=== PATIENT | male | born 1985 | race American Indian/Alaskan Native ===

== ENCOUNTER 2019-06-18 18:17 | Emergency (ER) | payer OTHER ==
[2019-06-18 19:41] VITALS: BP 152/87
--- NOTE | 2019-06-18 21:29 | Event Note ---
ED Screening Note ED Screening Note: denies HI/SI +hallucinations visual and auditory "states he has an appointment to have surgery today at this hospital, states they know him by name, states he needs tonsil surgery back surgery" pt has disorganized speech and delusions states he has been to psychiatric facility before 5-10 years ago PMHx bipolar, schizophrenia no allergies to meds +tobacco non drinker no drug use This initial assessment/diagnostic orders/clinical plan/treatment(s) is/are subject to change based on patients health status, clinical progression and re- assessment by fellow clinical providers in the ED. Further treatment and workup at subsequent clinical providers discretion. Patient/guardian urged not to elope from the ED as their condition may be serious if not clinically assessed and managed. Initial orders include: mental health eval
[2019-06-18 22:20] LABS: Hematocrit 42.9 % (35.5-45.6); Hemoglobin 14.2 gm/dl (11.8-15.2); Mean Corpuscular HGB Conc 33 % (32-34); Mean Corpuscular Volume 90 fl (84-94); Platelet Count 321 K/mm3 (140-440); Red Cell Distribution Width 13.6 % (13.2-15.2)
[2019-06-18 22:26] LABS: Alanine Aminotransferase 12 units/L (7-56); Albumin 4.4 g/dL (3.9-5); BUN/Creatinine Ratio 8; Blood Urea Nitrogen 7 mg/dL (9-20); Hemolysis Index 9
== END 2019-06-19 01:35 | disposition left against medical advice (07) ==
LOC: ED 18:17
DX: R44.0 Auditory hallucinations (principal); R44.1 Visual hallucinations; Z53.21 Procedure and treatment not carried out due to patient leaving prior to being seen by health care provider
CPT/HCPCS: 36415; 80053; 80320; 82550; 85025; G0480

== ENCOUNTER 2019-06-19 12:38 | Emergency (ER) | payer SELFPAY ==
[2019-06-19 13:44] LABS: Basophils % (Auto) 0.5 % (0.0-1.8); Eosinophils % (Auto) 0.1 % (0.0-4.3); Hematocrit 42.6 % (35.5-45.6); Hemoglobin 14.1 gm/dl (11.8-15.2); Lymphocytes # (Auto) 1.7 K/mm3 (1.2-5.4); Lymphocytes % (Auto) 27.3 % (13.4-35.0); Mean Corpuscular HGB Conc 33 % (32-34); Mean Corpuscular Volume 90 fl (84-94); Monocytes # (Auto) 0.9 K/mm3 (0.0-0.8); Monocytes % (Auto) 13.8 % (0.0-7.3); Platelet Count 344 K/mm3 (140-440); Red Blood Count 4.74 M/mm3 (3.65-5.03); Red Cell Distribution Width 13.9 % (13.2-15.2)
[2019-06-19 13:58] LABS: BUN/Creatinine Ratio 11; Blood Urea Nitrogen 10 mg/dL (9-20); Calcium 9.3 mg/dL (8.4-10.2); Hemolysis Index 3
--- NOTE | 2019-06-19 14:02 | Emergency Department Report ---
ED Psych HPI - General Chief Complaint: Psych Stated Complaint: TONSILS PAIN Time Seen by Provider: 06/19/19 13:58 Source: patient Mode of arrival: Ambulatory - History of Present Illness Initial Comments: 33-year-old male with history of bipolar disorder and schizophrenia presents to ED with auditory and visual hallucinations. Patient states that he is currently off of his psychiatric medications. Patient denies SI, HI, drug or alcohol use. -: unknown Associated Psychiatric Symptoms: auditory hallucinations, visual hallucinations Improves With: none Worsens With: none Context: not taking psychiatric Treatments Prior to Arrival: none - Related Data Previous Rx's Medication Instructions Recorded Last Taken Type Benztropine [Cogentin] 0.5 mg PO DAILY #30 tab 06/23/19 Unknown Rx Divalproex ER [Depakote ER] 250 mg PO TID #90 tablet 06/23/19 Unknown Rx risperiDONE [RisperDAL] 1 mg PO BID #60 tab 06/23/19 Unknown Rx traZODone [Desyrel] 50 mg PO QHS #30 tab 06/23/19 Unknown Rx Allergies Allergy/AdvReac Type Severity Reaction Status Date / Time No Known Allergies Allergy Verified 06/20/19 12:25 ED Review of Systems ROS: Stated complaint: TONSILS PAIN Other details as noted in HPI Comment: All other systems reviewed and negative ENT: dental pain Psychiatric: auditory hallucinations, visual hallucinations. denies: homicidal thoughts, suicidal thoughts ED Past Medical Hx - Past Medical History Previous Medical History?: Yes Hx Hypertension: Yes Hx Psychiatric Treatment: Yes (schizophrenia, bipolar) - Surgical History Past Surgical History?: No - Social History Smoking Status: Current Every Day Smoker - Medications Home Medications: Home Medications Medication Instructions Recorded Confirmed Last Taken Type Benztropine [Cogentin] 0.5 mg PO DAILY #30 tab 06/23/19 Unknown Rx Divalproex ER [Depakote ER] 250 mg PO TID #90 tablet 06/23/19 Unknown Rx risperiDONE [RisperDAL] 1 mg PO BID #60 tab 06/23/19 Unknown Rx traZODone [Desyrel] 50 mg PO QHS #30 tab 06/23/19 Unknown Rx ED Physical Exam - General Limitations: No Limitations General appearance: alert, in no apparent distress - Head Head exam: Present: atraumatic, normocephalic - Eye Eye exam: Present: normal appearance, EOMI - ENT ENT exam: Present: mucous membranes moist - Respiratory Respiratory exam: Present: normal lung sounds bilaterally. Absent: respiratory distress - Cardiovascular Cardiovascular Exam: Present: normal rhythm, tachycardia - GI/Abdominal GI/Abdominal exam: Absent: distended - Extremities Exam Extremities exam: Present: normal inspection, full ROM - Neurological Exam Neurological exam: Present: alert, oriented X3 - Psychiatric Psychiatric exam: Present: normal affect, normal mood, other (speech is disorganized) - Skin Skin exam: Present: warm, dry, intact, normal color ED Course Vital Signs 06/19/19 06/19/19 06/19/19 12:42 16:42 19:42 Temperature 98.5 F 99.4 F Pulse Rate 126 H 106 H Respiratory 16 18 Rate Blood Pressure 131/79 Blood Pressure 125/82 [Left] O2 Sat by Pulse 96 98 100 Oximetry 06/19/19 06/19/19 06/20/19 20:03 20:12 02:03 Temperature 98.5 F 98.5 F 97.5 F L Pulse Rate 109 H 85 77 Respiratory 18 16 16 Rate Blood Pressure Blood Pressure 129/76 128/86 122/90 [Left] O2 Sat by Pulse 96 97 97 Oximetry 06/20/19 06/20/19 06/20/19 08:35 19:10 20:00 Temperature 98.1 F 97.2 F L Pulse Rate 93 H 85 Respiratory 18 18 Rate Blood Pressure Blood Pressure 117/73 135/90 [Left] O2 Sat by Pulse 96 97 100 Oximetry 06/21/19 06/21/19 06/21/19 02:10 09:51 20:00 Temperature 97.8 F 98.2 F 98.4 F Pulse Rate 84 94 H 109 H Respiratory 18 18 Rate Blood Pressure Blood Pressure 128/74 112/76 126/80 [Left] O2 Sat by Pulse 97 100 99 Oximetry 06/22/19 06/22/19 06/22/19 02:00 07:00 13:00 Temperature 98.7 F 99.0 F 98.7 F Pulse Rate 96 H 69 118 H Respiratory 18 18 18 Rate Blood Pressure Blood Pressure 120/79 128/71 127/79 [Left] O2 Sat by Pulse 98 98 96 Oximetry 06/22/19 06/23/19 06/23/19 20:20 02:15 07:00 Temperature 99.9 F H 99.1 F 99.4 F Pulse Rate 110 H 96 H 123 H Respiratory 18 18 22 Rate Blood Pressure Blood Pressure 121/78 102/61 113/55 [Left] O2 Sat by Pulse 97 97 97 Oximetry 06/23/19 06/23/19 13:00 16:20 Temperature 99.1 F Pulse Rate 111 H 104 H Respiratory 20 18 Rate Blood Pressure Blood Pressure 142/72 126/76 [Left] O2 Sat by Pulse 97 98 Oximetry ED Medical Decision Making - Lab Data Result diagrams: 06/19/19 12:47 06/19/19 12:47 - Medical Decision Making 33-year-old male with history of bipolar and schizophrenia presents to ED with acute psychosis, reporting audio and visual hallucinations. Speech is disorganized, patient is delusional. Labs are unremarkable. Patient has been placed on 1013. He is medically clear for mental health evaluation. - Differential Diagnosis psychosis Critical care attestation.: If time is entered above; I have spent that time in minutes in the direct care of this critically ill patient, excluding procedure time. ED Disposition Clinical Impression: Schizoaffective disorder, Psychosis Disposition: DC-01 TO HOME OR SELFCARE Is pt being admited?: No Condition: Stable Instructions: Schizoaffective Disorder (ED) Prescriptions: traZODone [Desyrel] 50 mg PO QHS #30 tab Benztropine [Cogentin] 0.5 mg PO DAILY #30 tab Divalproex ER [Depakote ER] 250 mg PO TID #90 tablet risperiDONE [RisperDAL] 1 mg PO BID #60 tab [facility] - [facility]-5 Days LILLIAN MADAI KAPLAN MD [Primary Care Provider] - 3-5 Days
[2019-06-19 15:21] LABS: Bilirubin,Urine NEG (Negative); Blood,Urine NEG (Negative); Color,Urine Yellow (Yellow); Mucus,Urine 2+ /HPF; Urobilinogen,Urine < 2.0 mg/dL (<2.0)
[2019-06-19 15:27] LABS: Amphetamine Screen,Urine PRESUMPTIVE NEGATIVE; Benzodiazepines Screen,Urine PRESUMPTIVE NEGATIVE; Cannabinoid Screen,Urine PRESUMPTIVE NEGATIVE; Cocaine Screen,Urine PRESUMPTIVE NEGATIVE; Methadone Screen,Urine PRESUMPTIVE NEGATIVE; Opiate Screen,Urine PRESUMPTIVE NEGATIVE
--- NOTE | 2019-06-20 11:31 | Consultation ---
History of Present Illness - Reason for Consult Consult date: 06/20/19 Reason for consult: Delusional, hallucinations - Chief Complaint Chief complaint: Delusions, paranoia - History of Present Psychiatric Illness Don Smiley is a 33y/o male patient who presented to the ER for delusions and hallucinations. He's a/o x 3. He appears to be quite energetic. The patient is on the phone talking as I'm waiting to interview him. He then goes off to take a shower after he's off the phone. When he returns he's talkative and having fl ight of ideas. He also appears agitated at times when trying to explain himself. He says he "has a problem speaking." The patient says he was brought to the ER because he "had an appointment for his tonsils." He then begins to tell me that he broke his arm in the past, he's "in school and now out," he has stomach pains, and he "needs his tooth pulled." When asked about psychiatric history, Mr. Smiley says "sometimes I'm schizophrenic. Sometimes I'm bipolar. Sometimes it matters. Sometimes it doesn't." He denies SI/HI or hallucinations. He says his mood is "good" but states he "has some crazy dude following him. I think he's a chain saw massacre." The patient says he doesn't sleep. Right before the interview ended, the patient asked if he could be in a room by himself because he is "claustrophobic and I feel like the forte are closing in." PAST PSYCHIATRIC HISTORY: Diagnoses: Schizophrenia, Bipolar Suicide attempts or Self-harm behavior: Denies Prior psychiatric hospitalizations: Denies Substance Abuse history: Smokes daily Previous psychiatric medications tried: Cogentin, respiridone Outpatient treatment: "sometimes" PAST MEDICAL HISTORY: HTN (per chart) Family Psychiatric History None reported or documented SOCIAL HISTORY Marital Status: , says is in [place] Living Arrangements: Grandmother Employment Status: Unemployed Access to guns/weapons: "not really" Education: unknown, the patient could not answer clearly History of Abuse: denies Legal History: states he was incarcerated and "just got out 4 days ago." ROS: Constitutional: Negative for weight loss ENT: Negative for stridor Respiratory: Negative for cough or hemoptysis All other systems reviewed and are negative MENTAL STATUS General Appearance and Behavior: age appropriate, energetic, agitated at times Cooperation: Guarded Psychomotor Behavior: Restless Mood: Good Affect and affective range: Restricted Thought Process: Disorganized, flight of ideas Thought Content: paranoid Speech: Increased pace Intellectual Functioning Average Suicidal Ideation: Denies SI Homicidal Ideation: Denies HI Impulse Control: Questionable Insight and Judgment: Limited Memory: Limited Attention: Normal Orientation: alert and oriented Assessment: Bipolar, manic episode, severe w/psychotic features Schizophrenia RECOMMENDATIONS MEDICATIONS: -Depakote ER 250mg po TID -Trazodone 50mg po qd -Risperidone 1mg po BID -Seroquel 25mg po QHS -Cogentin 0.5mg p daily -Nicotine patch 21mg po daily -Geodon 10mg po Q4h prn agitation -Melatonin 5mg qhs prn insomnia Continue 1013 Risks, benefits and alternatives of medications discussed with the patient, questions answered and consent obtained from patient. PSYCHOTHERAPY: Supportive psychotherapy provided MEDICAL: Per primary team DELIRIUM PRECAUTIONS: Please re-orient patient frequently, keep lights on during the day, and minimize benzodiazepines and opiates as these medications could worsen patient's confusion. 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 I have reviewed this treatment plan, including potential risks and benefits of medications, with the patient and/or family members and relevant hospital providers. Please contact with any questions and/or concerns. Thank you for this consult. Medications and Allergies Allergies Allergy/AdvReac Type Severity Reaction Status Date / Time No Known Allergies Allergy Unverified 06/18/19 21:32 Mental Status Exam - Vital signs Last Vital Signs Temp 98.1 F 06/20/19 08:35 Pulse 93 H 06/20/19 08:35 Resp 16 06/20/19 02:03 BP 117/73 06/20/19 08:35 Pulse Ox 96 06/20/19 08:35 Results Result Diagrams: 06/19/19 12:47 06/19/19 12:47 Abnormal lab results 06/19/19 06/19/19 06/19/19 Range/Units 12:47 12:47 12:47 [place] % (Auto) (0.0-7.3) % [place] # (0.0-0.8) K/mm3 Carbon Dioxide 20 L D (22-30) mmol/L Salicylates < 0.3 L (2.8-20.0) mg/dL Acetaminophen < 5.0 L (10.0-30.0) ug/mL 06/19/19 Range/Units 12:47 [place] % (Auto) 13.8 H (0.0-7.3) % [place] # 0.9 H (0.0-0.8) K/mm3 Carbon Dioxide (22-30) mmol/L Salicylates (2.8-20.0) mg/dL Acetaminophen (10.0-30.0) ug/mL All other labs normal.
[2019-06-20] MEDS ORDERED: ZIPRASIDONE MESYLATE 20 MG VIAL IM PRN (12:03)
[2019-06-20] MEDS ORDERED: MELATONIN 5 MG TAB PO PRN (12:10)
[2019-06-20] MEDS: NICOTINE 21 MG/24 HR PATCH TD SCH ×2 (14:00→17:05)
[2019-06-20] MEDS: DIVALPROEX ER 250 MG TAB PO SCH ×2 (15:00→22:16)
[2019-06-20] MEDS ORDERED: QUEtiapine 25 MG TAB PO SCH (22:00)
[2019-06-20] MEDS: risperiDONE 0.25 MG TAB PO SCH (22:11)
[2019-06-20] MEDS: traZODone 50 MG TAB PO SCH (22:11)
[2019-06-21] MEDS: DIVALPROEX ER 250 MG TAB PO SCH ×3 (09:00→20:51)
[2019-06-21] MEDS: risperiDONE 0.25 MG TAB PO SCH ×3 (09:55→22:28)
[2019-06-21] MEDS: BENZTROPINE 0.5 MG TAB PO SCH (09:55)
[2019-06-21] MEDS: NICOTINE 21 MG/24 HR PATCH TD SCH (09:55)
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
[2019-06-21] MEDS: traZODone 50 MG TAB PO SCH (22:19)
[2019-06-21] MEDS ORDERED: risperiDONE 1 MG TAB ONE (22:19)
[2019-06-21] MEDS: risperiDONE 1 MG TAB PO SCH (22:20)
[2019-06-22] MEDS: DIVALPROEX ER 250 MG TAB PO SCH ×3 (09:22→20:11)
[2019-06-22] MEDS ORDERED: risperiDONE 1 MG TAB PO SCH (10:00)
[2019-06-22] MEDS: NICOTINE 21 MG/24 HR PATCH TD SCH (10:13)
[2019-06-22] MEDS: BENZTROPINE 0.5 MG TAB PO SCH (10:13)
[2019-06-22] MEDS: risperiDONE 1 MG TAB PO SCH ×2 (10:13→21:46)
--- NOTE | 2019-06-22 11:25 | Progress Note ---
Subjective - Reason for Consult Consult date: 06/22/19 Reason for consult: Manage mental health - Chief Complaint Chief complaint: The medical chart reviewed and patient's progress discussed with nursing staff. The nurse note states the patient denies SI/HI, reports A/V/H of "dragging." Pt is calm and cooperative at this time. No digress noted. In my interview with the patient today, the patient is lying down. Awake. He's speaking in a low tone and says he "really doesn't want to be disturbed." The patient is having disorganized thoughts and is paranoid. He says he's "paying attention to his surroundings because people look at you different." He is experiencing A/V hallucinations and says "the people who come around him, they are imaginary. They are sleep walking." He says they are "dressed in a style and sometimes they don't have clothes." Mr. Smiley says the people are standing around and he thinks "they are probably ." He says they tell him things like "you can't do this with your style." He describes his mood as "good" and denies SI/ HI. He says he "is sleeping better and feels better" since starting the medication. ROS: Constitutional: Negative for weight loss ENT: Negative for stridor Respiratory: Negative for cough or hemoptysis All other systems reviewed and are negative Mental Status Exam Appearance: Laying down Behavior: Disorganzied Mood: "Good" Affect: Congruent with stated mood Thought Process: Disorganized, flight of ideas Speech: Low tone Thought Content Harmfulness Denies SI/HI Hallucinations: A/V hallucinations Delusions: Paranoid Consciousness: Alert Cognition/Memory: Disorganized Insight/Judgment: Limited. Assessment: Bipolar, manic episode, severe w/psychotic features Schizophrenia RECOMMENDATIONS MEDICATIONS: Increased Risperidone 1.5mg po BID Continue 1013 Risks, benefits and alternatives of medications discussed with the patient, questions answered and consent obtained from patient. PSYCHOTHERAPY: Supportive psychotherapy provided MEDICAL: Per primary team DELIRIUM PRECAUTIONS: Please re-orient patient frequently, keep lights on during the day, and minimize benzodiazepines and opiates as these medications could worsen patient's confusion. 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 I have reviewed this treatment plan, including potential risks and benefits of medications, with the patient and/or family members and relevant hospital providers. Mental Status Exam - Vital signs Last Vital Signs Temp 99.0 F 06/22/19 07:00 Pulse 69 06/22/19 07:00 Resp 18 06/22/19 07:00 BP 128/71 06/22/19 07:00 Pulse Ox 98 06/22/19 07:00
[2019-06-22] MEDS: traZODone 50 MG TAB PO SCH (21:46)
[2019-06-23] MEDS: DIVALPROEX ER 250 MG TAB PO SCH ×2 (08:02→13:55)
[2019-06-23] MEDS: BENZTROPINE 0.5 MG TAB PO SCH (09:58)
[2019-06-23] MEDS: risperiDONE 1 MG TAB PO SCH (09:58)
[2019-06-23] MEDS: NICOTINE 21 MG/24 HR PATCH TD SCH (09:59)
--- NOTE | 2019-06-23 14:52 | Progress Note ---
Subjective - Reason for Consult Consult date: 06/23/19 Reason for consult: Manage mental health - Chief Complaint Chief complaint: In my interview with the patient today, the patient is lying down. Awake. He is cooperative and dressed appropriately. He is A/O x 3. He tells me he's "wearing a mask because he has a cold." He is questioning me about going home, and "why he's a 1013." The patient states he "feels much better. I need my prescriptions so I can go home" He still has A/V hallucinations. He says he sees them "popping out of lights but they are not that bad today." Mr. Smiley says the voices are saying "bitch. and parentheses." He says "the nurses are out to get him and he know's them from [place]." He denies SI/HI, stating "I never was. I told you that yesterday." He says his mood is "good" and his appetite is "alright." ROS: Constitutional: Negative for weight loss ENT: Negative for stridor Respiratory: Negative for cough or hemoptysis All other systems reviewed and are negative Mental Status Exam Appearance: Laying down Behavior: Cooperative Mood: "Good" Affect: Congruent with stated mood Thought Process: Goal directed Speech: Normal tone and pace Thought Content Harmfulness Denies SI/HI Hallucinations: A/V hallucinations Delusions: Paranoid Consciousness: Alert Cognition/Memory: Restricted Insight/Judgment: Restricted. Assessment: Bipolar, manic episode, severe w/psychotic features Schizophrenia RECOMMENDATIONS MEDICATIONS: Risperidone 1mg po BID Cogentin 0.5mg po daily Trazodone 50mg p qhs Divalproex ER 250mg po TID Discontinue 1013 MEDICAL: Per primary team DISPOSITION: No recommendation for the patient to be transferred to an acute psychiatric facility at this time. It is my opinion the patient will not further benefit from inpatient treatment. The patient may d/c home once medically cleared. The patient to follow up with outpatient psychiatry or PCP in 7 days. The patient agreed on the treatment plan, understood the risk, benefit, alternative treatment, potential consequence of no treatment, and gave informed consent. Please call with any questions or concerns. Thank you for this consult. I have reviewed this treatment plan, including potential risks and benefits of medications, with the patient and/or family members and relevant hospital providers. Mental Status Exam - Vital signs Last Vital Signs Temp 99.4 F 06/23/19 07:00 Pulse 123 H 06/23/19 07:00 Resp 22 06/23/19 07:00 BP 113/55 06/23/19 07:00 Pulse Ox 97 06/23/19 07:00
[2019-06-23 16:21] VITALS: BP 126/76
== END 2019-06-23 16:25 | disposition home or self-care (01) ==
LOC: EEVIPCON 12:38 → ED 12:38
DX: F25.9 Schizoaffective disorder, unspecified (principal); F29 Unspecified psychosis not due to a substance or known physiological condition; I10 Essential (primary) hypertension; F31.9 Bipolar disorder, unspecified; F17.200 Nicotine dependence, unspecified, uncomplicated
CPT/HCPCS: 36415; 80048; 80307; 80320; 81001; 85025; 99284; G0480

== ENCOUNTER 2019-06-26 14:10 | Emergency (ER) | payer SELFPAY ==
--- NOTE | 2019-06-26 14:42 | Event Note ---
ED Screening Note Date of service: 06/26/19 Time: 14:39 ED Screening Note: Pt complains of auditory hallucinations x this morning hx of bipolar disorder and schizophrenia states voices telling him to harm himself This initial assessment/diagnostic orders/clinical plan/treatment(s) is/are subj ect to change based on patients health status, clinical progression and re- assessment by fellow clinical providers in the ED. Further treatment and workup at subsequent clinical providers discretion. Patient/guardian urged not to elope from the ED as their condition may be serious if not clinically assessed and managed. Initial orders include: Labs mental health eval
[2019-06-26 15:34] LABS: Hematocrit 39.2 % (35.5-45.6); Mean Corpuscular HGB Conc 33 % (32-34); Mean Corpuscular Volume 90 fl (84-94); Platelet Count 256 K/mm3 (140-440); Red Blood Count 4.36 M/mm3 (3.65-5.03); Red Cell Distribution Width 13.6 % (13.2-15.2)
[2019-06-26 16:06] LABS: BUN/Creatinine Ratio 14; Blood Urea Nitrogen 11 mg/dL (9-20); Calcium 8.7 mg/dL (8.4-10.2); Hemolysis Index 5
[2019-06-26 17:19] LABS: Basophils % (Manual) 0 % (0.0-1.8); Eosinophils % (Manual) 0 % (0.0-4.3); Total Cells Counted 100
[2019-06-26 17:21] LABS: Platelet Estimate Consistent w Auto; Target Cells Few
--- NOTE | 2019-06-26 18:00 | Emergency Department Report ---
HPI - General Chief Complaint: Psych Time Seen by Provider: 06/26/19 14:39 - HPI HPI: 33-year-old male presents to the emergency department for a mental health evaluation. He has a history of schizophrenia and bipolar disorder. The patient says that he is hearing voices and they're telling him to kill himself. Patient was just recently discharged from [facility] for similar complaints. The patient does admit that he is homeless and was sleeping in a [employer] parking lot. He denies any licit drug use or any current alcohol intoxication. ED Past Medical Hx - Past Medical History Hx Hypertension: Yes Hx Psychiatric Treatment: Yes (schizophrenia, bipolar) - Social History Smoking Status: Current Every Day Smoker Substance Use Type: None - Medications Home Medications: Home Medications Medication Instructions Recorded Confirmed Last Taken Type Benztropine [Cogentin] 0.5 mg PO DAILY #30 tab 06/23/19 Unknown Rx Divalproex ER [Depakote ER] 250 mg PO TID #90 tablet 06/23/19 Unknown Rx risperiDONE [RisperDAL] 1 mg PO BID #60 tab 06/23/19 Unknown Rx traZODone [Desyrel] 50 mg PO QHS #30 tab 06/23/19 Unknown Rx ED Review of Systems ROS: Stated complaint: MH Other details as noted in HPI Comment: All other systems reviewed and negative Constitutional: denies: chills, fever Respiratory: denies: cough, shortness of breath Cardiovascular: denies: chest pain, palpitations Gastrointestinal: denies: abdominal pain, vomiting Musculoskeletal: denies: back pain, arthralgia Neurological: denies: headache, weakness Psychiatric: auditory hallucinations, suicidal thoughts Physical Exam - Physical Exam Vital Signs: Vital Signs 06/26/19 06/26/19 15:35 17:17 Temperature 98.9 F Pulse Rate 104 H Respiratory 16 Rate Blood Pressure 134/81 [Right] O2 Sat by Pulse 100 100 Oximetry Physical Exam: GENERAL: The patient is well-developed well-nourished. HEENT: Normocephalic. Atraumatic. Patient has moist mucous membranes. EYES: Extraocular motions are intact. NECK: Supple. Trachea is midline CHEST/LUNGS: Clear to auscultation. There is no respiratory distress noted. HEART/CARDIOVASCULAR: Regular. There is no tachycardia. ABDOMEN: Abdomen is soft, nontender. Patient has normal bowel sounds. There is no abdominal distention. SKIN: Skin is warm and dry. NEURO: The patient is awake, alert, and oriented. The patient is cooperative. The patient has no focal neurologic deficits. Normal speech. MUSCULOSKELETAL: There is no tenderness or deformity. There is no evidence of acute injury. ED Course Vital Signs 06/26/19 06/26/19 15:35 17:17 Temperature 98.9 F Pulse Rate 104 H Respiratory 16 Rate Blood Pressure 134/81 [Right] O2 Sat by Pulse 100 100 Oximetry ED Medical Decision Making - Lab Data Result diagrams: 06/26/19 15:14 06/26/19 15:14 - Medical Decision Making This patient initially came into the emergency department with the complaint of auditory hallucinations causing suicidal ideations. While the patient does have a psychiatric history, he was recently at [facility] and then was discharged from this hospital on 06/23/19 for similar symptoms. Also the patient admits to being homeless and that is part of his concern or reason for return. The patient was initially seen by the psychiatric core cutter and reamer who agreed with the plan for ED holding orders and the patient will be seen today by the psychiatric team. The case was reviewed and staffed with the psychiatrist, Dr. Winn, feels that the patient is not a danger to himself and patient can be safely discharged home with the previous outpatient follow-up recommendations and prescriptions. The patient denies any current suicidal ideations. He does have some auditory hallucinations but this is chronic for him. The patient has been instructed to return to the emergency Department with any worsening of his symptoms, thoughts of harming himself or others, any acute distress. - Differential Diagnosis schizophrenia, schizoaffective, bipolar disorder, substance abuse Critical Care Time: No Critical care attestation.: If time is entered above; I have spent that time in minutes in the direct care of this critically ill patient, excluding procedure time. ED Disposition Clinical Impression: Schizoaffective disorder Qualifiers: Schizoaffective disorder type: unspecified Qualified Code(s): F25.9 - Schizoaffective disorder, unspecified Disposition: DC-01 TO HOME OR SELFCARE Is pt being admited?: No Condition: Stable Instructions: Schizoaffective Disorder (ED) Additional Instructions: Please follow up with the outpatient psychiatric referrals given to by the psychiatric team. Take your medications as prescribed. Return to the emergency Department with any worsening of your symptoms thoughts of harming herself or others, or with any acute distress. Referrals: [facility] [Outside] - 2-3 Days [facility] [Outside] - 2-3 Days Time of Disposition: 15:28
[2019-06-26 18:56] LABS: Bilirubin,Urine NEG (Negative); Blood,Urine NEG (Negative); Color,Urine Yellow (Yellow); Mucus,Urine FEW /HPF
[2019-06-26 19:03] LABS: Amphetamine Screen,Urine PRESUMPTIVE NEGATIVE; Benzodiazepines Screen,Urine PRESUMPTIVE NEGATIVE; Cannabinoid Screen,Urine PRESUMPTIVE NEGATIVE; Cocaine Screen,Urine PRESUMPTIVE NEGATIVE; Methadone Screen,Urine PRESUMPTIVE NEGATIVE; Opiate Screen,Urine PRESUMPTIVE NEGATIVE
[2019-06-27 07:54] VITALS: BP 126/71
== END 2019-06-27 15:44 | disposition home or self-care (01) ==
LOC: ED 14:10
DX: F25.0 Schizoaffective disorder, bipolar type (principal); I10 Essential (primary) hypertension; F17.200 Nicotine dependence, unspecified, uncomplicated; Z79.899 Other long term (current) drug therapy
CPT/HCPCS: 36415; 80048; 80307; 80320; 81001; 85007; 85025; G0480